=== PATIENT | male | born 1950 | race Two or more races ===

== ENCOUNTER 2020-07-20 19:13 | Emergency (ER) | payer OTHER ==
[~2020-07-20] VITALS: Ht 170.2 cm; Wt 79.8 kg
[2020-07-20 20:30] VITALS: BP 148/74
== END 2020-07-20 20:34 | disposition home or self-care (01) ==
LOC: ER 19:13
DX: I16.0 Hypertensive urgency (principal); I10 Essential (primary) hypertension